=== PATIENT | female | born 1985 | race Caucasian/White ===

== ENCOUNTER 2018-12-18 15:54 | Emergency (ER) | payer OTHER ==
[2018-12-18 16:04] VITALS: RESP 18; TEMP 98
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
[2018-12-18 16:53] LABS: Basophils % (A) 1 %; Eosinophils # (A) 0.1 k/uL (0-0.7); Eosinophils % (A) 1 %; HCT 39.7 % (34.0-46.0); HGB 12.9 gm/dL (11.4-16.0); Lymphocytes # (A) 2.3 k/uL (1.0-4.8); Lymphocytes % (A) 26 %; MCH 28.7 pg (25.0-35.0); MCHC 32.6 g/dL (31.0-37.0); MCV 88.1 fL (80.0-100.0); Mean Platelet Volume 7.6; Monocytes # (A) 0.4 k/uL (0-1.0); Monocytes % (A) 4 %; Neutrophils # (A) 5.5 k/uL (1.3-7.7); Neutrophils % (A) 64 %; Platelet Count 268 k/uL (150-450); RBC 4.51 m/uL (3.80-5.40); RDW 13.5 % (11.5-15.5); WBC 8.5 k/uL (3.8-10.6)
[2018-12-18 16:56] LABS: Appearance,Urine Cloudy (Clear); Bacteria,Urine Rare /hpf; Bilirubin,Urine Negative (Negative); Blood,Urine Negative (Negative); Color,Urine Light Yellow; Glucose,Urine (UA) Negative (Negative); Hyaline Casts,Urine 4 /lpf (0-2); Ketones,Urine Trace (Negative); Leukocyte Esterase,Urine Negative (Negative); Mucus,Urine Rare /hpf; Nitrite,Urine Negative (Negative); PH, Urine 7.5 (5.0-8.0); Protein,Urine Trace (Negative); Specific Gravity,Urine 1.009 (1.001-1.035); Squamous Epithelial Cell,Urine 3 /hpf (0-4); Urobilinogen,Urine <2.0 mg/dL (<2.0)
[2018-12-18 17:02] LABS: ALT 15 U/L (9-52); AST 19 U/L (14-36); African American GFR (CKD) >90 (>60 ml/min/1.73 sqM); Albumin 4.9 g/dL (3.5-5.0); Alkaline Phosphatase 57 U/L (38-126); Anion Gap 10 mmol/L; Blood Urea Nitrogen 9 mg/dL (7-17); Carbon Dioxide 25 mmol/L (22-30); Chloride 108 mmol/L (98-107); Glucose 78 mg/dL (74-99); Potassium 3.4 mmol/L (3.5-5.1); Sodium 143 mmol/L (137-145); Total Bilirubin 0.4 mg/dL (0.2-1.3); Total Protein 7.9 g/dL (6.3-8.2)
--- NOTE | 2018-12-18 17:24 | XR ---
EXAMINATION: XR chest 2V DATE AND TIME: 12/18/2018 5:07 PM CLINICAL INDICATION: PHH; Pain TECHNIQUE: Departmental protocol COMPARISON: None FINDINGS: The lungs are clear. The pleural spaces are negative. The cardiac silhouette is not enlarged. The remainder of the mediastinal silhouette is unremarkable. The skeletal structures and soft tissues are negative for acute findings. IMPRESSION: NO ACUTE PROCESS.
[2018-12-18] MEDS ORDERED: CYCLOBENZAPRINE 10MG STARTER 3 TAB BTL PO STA (17:37)
[2018-12-18 17:40] VITALS: BP 140/97; PULSE 79
== END 2018-12-18 18:12 | disposition home or self-care (01) ==
LOC: EC 15:54
DX: S20.219A Contusion of unspecified front wall of thorax, initial encounter (principal); I49.8 Other specified cardiac arrhythmias; M54.2 Cervicalgia; Z88.2 Allergy status to sulfonamides; V49.49XA Driver injured in collision with other motor vehicles in traffic accident, initial encounter; Y93.89 Activity, other specified; Y92.410 Unspecified street and highway as the place of occurrence of the external cause
CPT/HCPCS: 36415; 71046; 80053; 81001; 81025; 84484; 85025; 93005; 99284

== ENCOUNTER 2019-07-21 08:33 | Emergency (ER) | payer OTHER ==
[2019-07-21] MEDS ORDERED: SODIUM CHLORIDE 0.9% 500 ML 500 ML IV STA (08:42)
[2019-07-21] MEDS ORDERED: ONDANSETRON 4 MG/2 ML VIAL IVP STA (08:46)
--- NOTE | 2019-07-21 08:50 | ED ---
Nausea/Vomiting/Diarrhea HPI - General Chief complaint: Nausea/Vomiting/Diarrhea Stated complaint: stomach pain, vomiting Time Seen by Provider: 07/21/19 08:41 Source: patient Mode of arrival: ambulatory Limitations: no limitations - History of Present Illness Initial comments: 34-year-old female with no past medical history last menstrual period 06/15/2020 presents emergency department today for chief complaint of lower abdominal pain vomiting diarrhea. Patient states she initially of 4 days of fever, that was associated wtih cough and URI symptoms. She states she is still slightly congested but feeling better and fever free. she states that she began to have some loss stools as well as nausea with vomiting for the past week especially in the AM. Patient states she is able to keep some liquids. Patient states the pain of the abdomen that she has been experiencing is crampy in nature in the lower abdomen without radiation.. Patient ate that she has no vaginal bleeding, but admits to discharge. Patient denies CP, SOB, back pain. Remaining ROS (-), denies [place], neck stiffness, upper abdominal pain. Patient appears well on arrival, afebrile. - Related Data Previous Rx's Medication Instructions Recorded Cephalexin [Keflex] 500 mg PO Q12HR 7 Days #14 cap 07/21/19 Allergies Allergy/AdvReac Type Severity Reaction Status Date / Time Sulfa (Sulfonamide Allergy Anaphylaxis Verified 07/21/19 08:35 Antibiotics) Review of Systems ROS Statement: Those systems with pertinent positive or pertinent negative responses have been documented in the HPI. ROS Other: All systems not noted in ROS Statement are negative. 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 Eye: +3 mm pupils are equal, round and reactive to light, extra-ocular movements are intact. No nystagmus. There is normal conjunctiva bilaterally. No signs of icterus. Ears, nose, mouth and throat: There are moist mucous membranes and no oral lesions. Neck: The neck is supple, there is no tenderness or JVD. Cardiovascular: There is a regular rate and rhythm. No murmur, rub or gallop is appreciated. Respiratory: Lungs are clear to auscultation, respirations are non-labored, breath sounds are equal. No wheezes, stridor, rales, or rhonchi. Gastrointestinal: Soft, non-distended, abdomen tender to palpation of the lower aspect b/l, appears mild-moderate, remaining abdomen without masses or organomegaly noted. There is no rebound or guarding present. Pelvic no external lesions, scant amount of white thin discharge in vault, no strawberry cervix os closed wtihout cervical motion or adnexal tenderness. No specific odor noted Musculoskeletal: Normal ROM, no tenderness. Strength 5/5. Sensation intact. Radial pulses equal bilaterally 2+. Neurological: A&O x 3. CN II-XII intact grossly, There are no obvious motor or sensory deficits. Coordination appears grossly intact. Speech is normal. Skin: Skin is warm and dry and no rashes or lesions are noted. Psychiatric: Cooperative, appropriate mood & affect, normal judgment. Limitations: no limitations Course Vital Signs 07/21/19 07/21/19 08:35 11:51 Temperature 97.7 F 98.8 F Pulse Rate 105 H 85 Respiratory 18 16 Rate Blood Pressure 137/83 147/91 O2 Sat by Pulse 98 100 Oximetry Medical Decision Making - Medical Decision Making 34-year-old female presenting for lower abdominal cramping. Patient concern of denies severe pain abdominal exam relatively upon benign mild pain ultrasound revealed intrauterine sac and yolk no testing at this time. Patient's last menstrual period was 06/15/2019. Patient denies vaginal bleeding. HCG elevated. UA had bacteria, and status patient will be treated for a symptomatic bacteriuria. Patient was positive for Trichomonas and would like prophylactic treatment for all STI Patient was given azithromycin and Rocephin, and flagyll. Discussed case with Dr. Connolly, we will discharge patient with OB f/u and repeat HCG, and return parameters patient agreeable to discharge. Abdomen soft benign. - Lab Data Result diagrams: 07/21/19 08:59 07/21/19 08:59 Lab Results 07/21/19 07/21/19 07/21/19 Range/Units 08:59 08:59 08:59 WBC 4.7 (3.8-10.6) k/uL RBC 4.57 (3.80-5.40) m/uL Hgb 13.7 (11.4-16.0) gm/dL Hct 38.6 (34.0-46.0) % MCV 84.5 (80.0-100.0) fL MCH 30.0 (25.0-35.0) pg MCHC 35.5 (31.0-37.0) g/dL RDW 13.0 (11.5-15.5) % Plt Count 132 L (150-450) k/uL Neutrophils % 63 % Lymphocytes % 26 % Monocytes % 5 % Eosinophils % 0 % Basophils % 1 % Neutrophils # 3.0 (1.3-7.7) k/uL Lymphocytes # 1.3 (1.0-4.8) k/uL Monocytes # 0.3 (0-1.0) k/uL Eosinophils # 0.0 (0-0.7) k/uL Basophils # 0.0 (0-0.2) k/uL Sodium 141 (137-145) mmol/L Potassium 3.7 (3.5-5.1) mmol/L Chloride 108 H (98-107) mmol/L Carbon Dioxide 21 L (22-30) mmol/L Anion Gap 12 mmol/L BUN 8 (7-17) mg/dL Creatinine 0.60 (0.52-1.04) mg/dL Est GFR (CKD-EPI)AfAm >90 (>60 ml/min/1.73 sqM) Est GFR (CKD-EPI)NonAf >90 (>60 ml/min/1.73 sqM) Glucose 101 H (74-99) mg/dL Calcium 9.3 (8.4-10.2) mg/dL Total Bilirubin 0.5 (0.2-1.3) mg/dL AST 38 H (14-36) U/L ALT 24 (4-34) U/L Alkaline Phosphatase 54 (38-126) U/L Total Protein 7.7 (6.3-8.2) g/dL Albumin 4.5 (3.5-5.0) g/dL Amylase 73 (30-110) U/L Lipase 76 (23-300) U/L HCG, Quant mIU/mL Urine Color Urine Appearance (Clear) Urine pH (5.0-8.0) Ur Specific [place] (1.001-1.035) Urine Protein (Negative) Urine Glucose (UA) (Negative) Urine Ketones (Negative) Urine Blood (Negative) Urine Nitrite (Negative) Urine Bilirubin (Negative) Urine Urobilinogen (<2.0) mg/dL Ur Leukocyte Esterase (Negative) Urine RBC (0-5) /hpf Urine WBC (0-5) /hpf Ur Squamous Epith Cells (0-4) /hpf Amorphous Sediment (None) /hpf Urine Bacteria (None) /hpf Urine Mucus (None) /hpf Urine HCG, Qual Detected (Not Detectd) Influenza Type A RNA (Not Detectd) Influenza Type B (PCR) (Not Detectd) Trichomonas Ag (Rapid) (Negative) 07/21/19 07/21/19 07/21/19 Range/Units 08:59 08:59 08:59 WBC (3.8-10.6) k/uL RBC (3.80-5.40) m/uL Hgb (11.4-16.0) gm/dL Hct (34.0-46.0) % MCV (80.0-100.0) fL MCH (25.0-35.0) pg MCHC (31.0-37.0) g/dL RDW (11.5-15.5) % Plt Count (150-450) k/uL Neutrophils % % Lymphocytes % % Monocytes % % Eosinophils % % Basophils % % Neutrophils # (1.3-7.7) k/uL Lymphocytes # (1.0-4.8) k/uL Monocytes # (0-1.0) k/uL Eosinophils # (0-0.7) k/uL Basophils # (0-0.2) k/uL Sodium (137-145) mmol/L Potassium (3.5-5.1) mmol/L Chloride (98-107) mmol/L Carbon Dioxide (22-30) mmol/L Anion Gap mmol/L BUN (7-17) mg/dL Creatinine (0.52-1.04) mg/dL Est GFR (CKD-EPI)AfAm (>60 ml/min/1.73 sqM) Est GFR (CKD-EPI)NonAf (>60 ml/min/1.73 sqM) Glucose (74-99) mg/dL Calcium (8.4-10.2) mg/dL Total Bilirubin (0.2-1.3) mg/dL AST (14-36) U/L ALT (4-34) U/L Alkaline Phosphatase (38-126) U/L Total Protein (6.3-8.2) g/dL Albumin (3.5-5.0) g/dL Amylase (30-110) U/L Lipase (23-300) U/L HCG, Quant 46225.1 mIU/mL Urine Color Yellow Urine Appearance Clear (Clear) Urine pH 6.5 (5.0-8.0) Ur Specific [place] 1.011 (1.001-1.035) Urine Protein Negative (Negative) Urine Glucose (UA) Negative (Negative) Urine Ketones Trace H (Negative) Urine Blood Negative (Negative) Urine Nitrite Negative (Negative) Urine Bilirubin Negative (Negative) Urine Urobilinogen <2.0 (<2.0) mg/dL Ur Leukocyte Esterase Large H (Negative) Urine RBC 1 (0-5) /hpf Urine WBC 12 H (0-5) /hpf Ur Squamous Epith Cells 3 (0-4) /hpf Amorphous Sediment Rare H (None) /hpf Urine Bacteria Rare H (None) /hpf Urine Mucus Rare H (None) /hpf Urine HCG, Qual (Not Detectd) Influenza Type A RNA Not Detected (Not Detectd) Influenza Type B (PCR) Detected H (Not Detectd) Trichomonas Ag (Rapid) (Negative) 07/21/19 Range/Units 10:52 WBC (3.8-10.6) k/uL RBC (3.80-5.40) m/uL Hgb (11.4-16.0) gm/dL Hct (34.0-46.0) % MCV (80.0-100.0) fL MCH (25.0-35.0) pg MCHC (31.0-37.0) g/dL RDW (11.5-15.5) % Plt Count (150-450) k/uL Neutrophils % % Lymphocytes % % Monocytes % % Eosinophils % % Basophils % % Neutrophils # (1.3-7.7) k/uL Lymphocytes # (1.0-4.8) k/uL Monocytes # (0-1.0) k/uL Eosinophils # (0-0.7) k/uL Basophils # (0-0.2) k/uL Sodium (137-145) mmol/L Potassium (3.5-5.1) mmol/L Chloride (98-107) mmol/L Carbon Dioxide (22-30) mmol/L Anion Gap mmol/L BUN (7-17) mg/dL Creatinine (0.52-1.04) mg/dL Est GFR (CKD-EPI)AfAm (>60 ml/min/1.73 sqM) Est GFR (CKD-EPI)NonAf (>60 ml/min/1.73 sqM) Glucose (74-99) mg/dL Calcium (8.4-10.2) mg/dL Total Bilirubin (0.2-1.3) mg/dL AST (14-36) U/L ALT (4-34) U/L Alkaline Phosphatase (38-126) U/L Total Protein (6.3-8.2) g/dL Albumin (3.5-5.0) g/dL Amylase (30-110) U/L Lipase (23-300) U/L HCG, Quant mIU/mL Urine Color Urine Appearance (Clear) Urine pH (5.0-8.0) Ur Specific [place] (1.001-1.035) Urine Protein (Negative) Urine Glucose (UA) (Negative) Urine Ketones (Negative) Urine Blood (Negative) Urine Nitrite (Negative) Urine Bilirubin (Negative) Urine Urobilinogen (<2.0) mg/dL Ur Leukocyte Esterase (Negative) Urine RBC (0-5) /hpf Urine WBC (0-5) /hpf Ur Squamous Epith Cells (0-4) /hpf Amorphous Sediment (None) /hpf Urine Bacteria (None) /hpf Urine Mucus (None) /hpf Urine HCG, Qual (Not Detectd) Influenza Type A RNA (Not Detectd) Influenza Type B (PCR) (Not Detectd) Trichomonas Ag (Rapid) Positive H (Negative) Disposition Clinical Impression: Influenza B, Vomiting during , at early stage, Bilateral lower abdominal cramping, Trichomonal infection, Bacteria in urine Disposition: HOME SELF-CARE Condition: Good Instructions (If sedation given, give patient instructions): Abdominal Pain in (ED) Additional Instructions: Please use medication as discussed. Please follow-up with family doctor in the next 2 days, and OBGYN in the next week. Repeat HCG in 48 hours. Please return to emergency room if the symptoms increase or worsen or for any other concerns-unilateral pain, vaginal bleeding, increasing pain, uncontrolled vomiting, lightheadedness. Prescriptions: Cephalexin [Keflex] 500 mg PO Q12HR 7 Days #14 cap Is patient prescribed a controlled substance at d/c from ED?: No Referrals: Parish Leonardo NPC [REFERRING] - 1-2 days Time of Disposition: 11:51
[2019-07-21 09:29] LABS: ALT 24 U/L (4-34); AST 38 U/L (14-36); African American GFR (CKD) >90 (>60 ml/min/1.73 sqM); Albumin 4.5 g/dL (3.5-5.0); Alkaline Phosphatase 54 U/L (38-126); Amylase 73 U/L (30-110); Anion Gap 12 mmol/L; Blood Urea Nitrogen 8 mg/dL (7-17); Calcium 9.3 mg/dL (8.4-10.2); Carbon Dioxide 21 mmol/L (22-30); Chloride 108 mmol/L (98-107); Glucose 101 mg/dL (74-99); Non-African American GFR(CKD) >90 (>60 ml/min/1.73 sqM); Potassium 3.7 mmol/L (3.5-5.1); Sodium 141 mmol/L (137-145); Total Bilirubin 0.5 mg/dL (0.2-1.3); Total Protein 7.7 g/dL (6.3-8.2)
[2019-07-21 09:33] LABS: Amorphous Sediment,Urine Rare /hpf; Appearance,Urine Clear (Clear); Bacteria,Urine Rare /hpf; Bilirubin,Urine Negative (Negative); Blood,Urine Negative (Negative); Color,Urine Yellow; Glucose,Urine (UA) Negative (Negative); Ketones,Urine Trace (Negative); Leukocyte Esterase,Urine Large (Negative); Mucus,Urine Rare /hpf; Nitrite,Urine Negative (Negative); PH, Urine 6.5 (5.0-8.0); Protein,Urine Negative (Negative); RBC,Urine 1 /hpf (0-5); Specific Gravity,Urine 1.011 (1.001-1.035); Squamous Epithelial Cell,Urine 3 /hpf (0-4); Urobilinogen,Urine <2.0 mg/dL (<2.0); WBC,Urine 12 /hpf (0-5)
[2019-07-21 09:35] LABS: Basophils % (A) 1 %; Eosinophils % (A) 0 %; HCT 38.6 % (34.0-46.0); HGB 13.7 gm/dL (11.4-16.0); Lymphocytes # (A) 1.3 k/uL (1.0-4.8); Lymphocytes % (A) 26 %; MCHC 35.5 g/dL (31.0-37.0); MCV 84.5 fL (80.0-100.0); Mean Platelet Volume 8.5; Monocytes # (A) 0.3 k/uL (0-1.0); Monocytes % (A) 5 %; Neutrophils % (A) 63 %; Platelet Count 132 k/uL (150-450); RBC 4.57 m/uL (3.80-5.40); WBC 4.7 k/uL (3.8-10.6)
[2019-07-21] MEDS ORDERED: cefTRIAXone IN SWFI 1,000 MG/10 ML SYRINGE IVP STA (10:39)
--- NOTE | 2019-07-21 11:00 | US ---
EXAMINATION TYPE: Transabdominal DATE OF EXAM: 07/21/2019 10:44 AM COMPARISON: NONE CLINICAL HISTORY: pain. N/V/D, influenza EXAM PERFORMED: Transabdominal (TA) EXAM MEASUREMENTS: GESTATIONAL AGE / DATING Physician Established: Not established yet Dates by LMP: (5 weeks/1 days) EDC: 03/21/2020 Dates by First Scan: This is 1st scan Dates by Current Scan for: ( 5 weeks/0 days) EDC: 03/22/2020 MATERNAL ANATOMY Uterus: 9.3 x 4.2 x 5.9cm Right Ovary: 3.4 x 2.6 x 2.6cm Left Ovary: 2.7 x 2.0 x 1.8cm Post CDS / Adnexa: wnl Presence of free fluid: no Presence of corpus luteal cyst: right ovary: 1.7 x 1.4 x 2.0cm Presence of subchorionic bleed: no GESTATION / SURVEY No pole seen at this time MSD: 1.0cm (5 weeks/0 days) Yolk Sac (normal less than 6mm): 3.2mm Date of LMP: 06/15/2019 Beta HcG (if available): Not available at time of exam IMPRESSION: Gestational sac and yolk sac are seen corresponding to dates of 5 weeks and 0 days however no p ole is yet identified and therefore considerations remain for anembryonic , early intrauteri ne , or less likely ectopic . Follow-up with short-term serial serum beta hCGs and pelvic ultrasound in approximately 7 days are recommended.
[2019-07-21 11:52] VITALS: BP 147/91; PULSE 85; RESP 16; TEMP 98.8
[2019-07-21] MEDS ORDERED: metroNIDAZOLE 500 MG TAB PO STA (11:53)
[2019-07-21] MEDS ORDERED: CEPHALEXIN 500MG STARTER PACK 4 CAP BTL PO STA (11:54)
[2019-07-21] MEDS ORDERED: cefTRIAXone 250 MG VIAL IV STA (12:00)
[2019-07-21] MEDS ORDERED: AZITHROMYCIN 500 MG TAB PO STA (12:00)
[2019-07-21] MEDS ORDERED: cefTRIAXone 250 MG VIAL IM STA (12:26)
[2019-07-22 13:35] LABS: N. gonorrhoeae,PCR Negative (Neg,Equiv); Neisseria Source Vagina
[2019-07-22 13:38] LABS: C. trachomatis,PCR Negative (Neg,Equiv); Chlamydia trachomatis Source Vagina
== END 2019-07-21 12:53 | disposition home or self-care (01) ==
LOC: EC 08:33
DX: O21.9 Vomiting of pregnancy, unspecified (principal); O98.311 Other infections with a predominantly sexual mode of transmission complicating pregnancy, first trimester; A59.9 Trichomoniasis, unspecified; O99.511 Diseases of the respiratory system complicating pregnancy, first trimester; J10.1 Influenza due to other identified influenza virus with other respiratory manifestations; O99.89 Other specified diseases and conditions complicating pregnancy, childbirth and the puerperium; R82.71 Bacteriuria; R19.7 Diarrhea, unspecified; Q60.0 Renal agenesis, unilateral; Z3A.01 Less than 8 weeks gestation of pregnancy; Z88.2 Allergy status to sulfonamides
CPT/HCPCS: 36415; 80053; 82150; 83690; 85025; 81001; 81025; 84702; 87808; 87491; 87591; 87070; 87086; 87502; 76801; 99284; 96374; 96361; 96372; J2405; J0696

== ENCOUNTER → 2020-07-28 | Outpatient (CLI) | payer OTHER ==
[2020-07-28 09:09] VITALS: BP 159/89; PULSE 87; RESP 18; TEMP 97.9
--- NOTE | 2020-07-28 10:31 | P.HPOB ---
History of Present Illness H&P Date: 07/28/20 Chief Complaint: The patient is here for her routine gynecologic exam. This is a 35-year-old 0-2 with an LMP of 06/22/2020. The patient is here to establish with this office. It has been about 2 years since her last pelvic exam. She is currently on oral contraception. She states she is currently not seeing anybody and is not in need of control at this time. She generally has had better menstrual periods while on control pills and has been on control pills most of the time for many years. She had stopped the control pills for about 1 month at the end of 2019 and states she felt better when she was off of them. She states while on control pills her heart seems to be faster. She states in 2019 she was treated twice for Trichomonas and she is uncertain of the name of the medication was used. She is no longer with the partner that she believes gave her the Trichomonas. She still notices a slight milky discharge without odor and denies pruritus or irritation. Her menstrual periods are typically regular every month and are lasting 9 days with 5 days of heavier flow. Off of control pills her menstrual periods can last up to 14 days with heavier flow. During the heavy flow days she has to change her protection about every 2 hours. She states she has completed her childbearing. Review of Systems The patient's weight has been stable over the last year. She denies respiratory, cardiac, or G.I. problems. 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 Hearing loss since the child. History of Vitiligo. Past GRADUATE FELLOW history: She has been treated for Trichomonas 2 and had been treated for an STD as a teenager but does not know the name. She denies history of HSV. History of Any Multi-Drug Resistant Organisms: None Reported Past Surgical History: No Surgical Hx Reported Additional Past Surgical History / Comment(s): Tubes in ears Past Psychological History: No Psychological Hx Reported Smoking Status: Never smoker Past Alcohol Use History: None Reported Additional Past Alcohol Use History / Comment(s): History of taking an second hand smoke since both of her parents smoked. Past Drug Use History: None Reported Additional History: She is single and is currently not seeing any bleeding at this time. She currently does not work outside of the home. She and her children live with her parents. - Past Family History Mother Family Medical History: Coronary Artery Disease (CAD), Diabetes Mellitus, Hypertension Additional Family Medical History / Comment(s): Maternal grandmother and maternal grandfather both had diabetes. Father Family Medical History: COPD, Hypertension Medications and Allergies Home Medications Medication Instructions Recorded Confirmed Type Cholecalciferol (Vitamin D3) 125 mcg PO DAILY 07/28/20 07/28/20 History [Vitamin D3 (5000 Iu)] Multivit with Calcium,Iron,Min 1 each PO DAILY 07/28/20 07/28/20 History [Women's Multivitamin] Norgestimate-Ethinyl Estradiol 1 tab PO DAILY 07/28/20 07/28/20 History [Sprintec 28 Day Tablet] Allergies Allergy/AdvReac Type Severity Reaction Status Date / Time Sulfa (Sulfonamide Allergy Anaphylaxis Verified 07/28/20 09:01 Antibiotics) Exam Vital Signs Temp Pulse Resp BP Pulse Ox 07/28/20 09:03 97.9 F 87 18 159/89 100 Intake and Output 07/27/20 07/28/20 07/28/20 22:59 06:59 14:59 Other: Weight 57.606 kg Height 5 feet 2 inches, weight 127 pounds, BMI 23.2. Initial blood pressure in the right arm was 172/89 and 159/89 in the left arm. Repeat blood pressure in the left arm 112/78. This is a well-developed well-nourished white female who is alert and oriented times 3 in no acute distress. HEENT: Within normal limits. NECK: Supple without mass or thyromegaly. CHEST AND LUNGS: Clear to auscultation. HEART: Regular rate and rhythm. BREASTS: Are without mass or discharge. AXILLARY EXAM: Negative for adenopathy. BACK: Negative for CVA tenderness. ABDOMEN: Soft, nontender, without palpable masses. PELVIC EXAM: Normal external genitalia. Cervix and vagina appear normal. There is a small amount of conn creamy discharge without odor. There is no cervical motion tenderness. There is no evidence of prolapse. The uterus is slightly retroverted, nongravid size and nontender. There are no palpable adnexal masses or tenderness. RECTAL EXAM: Refused by the patient. EXTREMITIES: Nontender. IMPRESSION: 1. 35-year-old female with history of menorrhagia improved slightly with oral contraception. 2. Elevated blood pressure. 3. History of Trichomonas 2 during the past year that was treated per the patient. 4. Vaginal discharge. Differential diagnosis will include Trichomonas, Tamika, bacterial vaginosis, GC and chlamydia and physiologic discharge. 5. She states she is currently not sexually active and has completed her childbearing. PLAN: 1. Pap smear cotest was performed. 2. Self breast awareness was discussed with the patient. 3. Affirm vaginitis panel testing from the vagina was obtained. This will check for tamika, Gardnerella, and Trichomonas. 4. GC and Chlamydia testing was obtained from the cervix. 5. Blood STD testing will be drawn today and will include HIV, RPR, hepatitis B surface antigen, and hepatitis C antibody. The patient is also requesting screening blood work and this will include, but has of chem panel and fasting l ipid profile. The order slip was given to the patient for these blood tests. 6. STD prevention was discussed. I have stressed the importance of limiting sexual partners. I have also stressed the importance of using condoms if she is sexually active. 7. I have recommended that she discontinue her control pills immediately because of her elevated blood pressure. She states she is near the end of her current pack. I have recommended that she return for blood pressure check off of control pills. She states she has a blood pressure cuff that she will use at home. I recommended that she check her blood pressure daily. If it is consistently greater than 140/90, she is to follow up with her PCP. 8. We have discussed various options for her menorrhagia. Because of her blood pressure elevation I do not feel she is a good candidate to continue on oral contraception. We have discussed other options such as the Mirena IUD and endometrial ablation with tubal sterilization. The [employer] FAQ handouts on endometrial ablation and IUD were given to the patient. She will abstain from sexual activity at this time. She will call if she is interested in any other form of control. 9. She was advised to return in one year for her annual well woman exam and as needed.
[2020-07-28 15:50] LABS: African American GFR (CKD) 112.3 (60.0-200.0); Albumin 4.9 g/dL (3.80-4.90); Albumin/Globulin Ratio 2.13 (1.60-3.17); Anion Gap 9.4 mmol/L (4.00-12.00); BUN/Creat Ratio 12.5 Ratio (12.00-20.00); Calcium 9.8 mg/dL (8.7-10.3); Carbon Dioxide 23.6 mmol/L (21.6-31.8); Chol/HDL Ratio 3.39; Globulin 2.3 g/dL (1.6-3.3); Non-African American GFR(CKD) 96.9 (60.0-200.0); Potassium 4.1 mmol/L (3.5-5.5); Total Bilirubin 0.5 mg/dL (0.2-1.2); Total Protein 7.2 g/dL (6.2-8.2)
[2020-07-28 18:08] LABS: Hepatitis B Surface Antigen Non-Reactive (Non-Reactive); Hepatitis C IgG Antibody Non-Reactive (Non-Reactive)
[2020-07-28 19:20] LABS: HIV 2 AB Non-Reactive (Non-Reactive); HIV AB P24 Non-Reactive (Non-Reactive); HIV P24 AG Non-Reactive (Non-Reactive)
[2020-07-29 03:27] LABS: Gardnerella Positive (Negative); Source Vagina; Trichomonas Positive (Negative)
--- NOTE | 2020-07-29 10:03 | P.PN ---
Progress Note - Text Progress Note Date: 07/29/20 Test results from 07/28/20 include +Trichomonas, +Gardnerella, neg Tamika, negHIV, neg RPR, neg HBsAg, neg Hep C Ab. The patient was notified by phone. She states she is no longer seeing the person she believes gave her Trichomonas. She was treated twice for Trichomonas in recent months. She will be treated for Trichomonas vaginalis and bacterial vaginosis with metronidazole 500m PO BID x 7days. No refills. She is to avoid alcohol while taking this. She is unsure of what was used to treat the Trichomonas in the past. The electronic prescription has been sent to [facility] in [place]. STD prevention was discussed. I have again stressed the importance of limiting sexual partners and if she is sexually active I have strongly recommended the use of condoms. She understands that Trichomonas is passed sexually and can be reinfected with sexual exposure of a person who has it. GC and Chlamydia results are pending. She was instructed to make an appointment for follow-up in 2 months to be re-tested for Trichomonas. At that time we can check her blood pressue again.
[2020-07-29 12:57] LABS: C. trachomatis,PCR Negative (Neg,Equiv); Chlamydia trachomatis Source Cervix; N. gonorrhoeae,PCR Negative (Neg,Equiv); Neisseria Source Cervix
== END | disposition home or self-care (01) ==
LOC: WWCWWP 08:33
PROVIDERS: ATTEND Obstetrics & Gynecology
DX: Z00.00 Encounter for general adult medical examination without abnormal findings (principal); N89.8 Other specified noninflammatory disorders of vagina; Z11.3 Encounter for screening for infections with a predominantly sexual mode of transmission
CPT/HCPCS: 80053; 80061; 86780; 86803; 87340; 87390; 87480; 87491; 87510; 87591; 87660